=== PATIENT | female | born 1940 | race Caucasian/White ===

== ENCOUNTER → 2019-10-23 | Outpatient (CLI) | payer MEDICARE, OTHER ==
[2019-10-23 14:11] LABS: Source, Urine Clean Catch
[2019-10-23 15:10] LABS: Appearance, Urine Cloudy (Clear); Bilirubin, Urine Neg (Neg); Blood, Urine Neg (Neg); Color, Urine Yellow (P-Yellow); Glucose Qualitative, Urine Neg (Neg); Ketones, Urine Neg (Neg); Leukocyte Esterase, Urine 1+ (Neg); Nitrite, Urine Pos (Neg); Protein, Urine 1+ (Neg); Urobilinogen, Urine NORM (Normal)
[2019-10-23 15:39] LABS: Bacteria Many /hpf; Squamous Epithelial Cells Mod /hpf (Few)
== END | disposition home or self-care (01) ==
LOC: LAB SHORT 14:06 → LAB 14:06
PROVIDERS: Internal Medicine
DX: N18.3 Chronic kidney disease, stage 3 (moderate) (principal)
CPT/HCPCS: 81001; 82570; 84156

== ENCOUNTER 2020-01-16 16:22 | Day surgery (SDC) | payer MEDICARE, OTHER ==
[~2020-01-16] VITALS: Ht 170.2 cm; Wt 95.4 kg
--- NOTE | 2020-01-16 09:32 | NUR ---
History, Chart, Medications and Allergies reviewed before start of procedure. Lungs clear T/O to Auscultation. Patient confirms NPO status and agrees with scheduled surgery. Pre-Op teaching done. Pt verbalizes understanding. Patient reports completing Chlorhexadine shower X2 prior to admission to hospital.
--- NOTE | 2020-01-16 11:16 | NUR ---
01/16/20 1116 MoJuan Manuel L RIGHT LEG HAS MULTIPLE SCRATCHES ON THE ANTERIOR ANKLE AREA. SCRATCHES ALSO NOTED ON RIGHT SIDE OF PATIENTS ABDOMEN AND HIP AREA. PATIENT STATES THAT "IT'S FROM THE (CHLORAHEXADINE) SOAP I HAD TO USE IN THE SHOWER". HEALING ULCERATION ON TIP OF RIGHT 5TH TOE. ALSO PATIENT HAS LARGE BRUISE ON LEFT HIP. PATIENT STATES "I FELL LAST WEEK WHEN I TRIPPED ON MY WALKER". DR. ALEMAN AWARE OF ABOVE SKIN ALTERATIONS.
[~2020-01-16 16:22] MED LIST: AMIT50 PO; ASPI81CH PO; CELE200 PO; CITA20 PO; EUTHYROX100 MCG PO; FISH OIL 1,2001 EAC7 PO; HYDCHL25 PO; LOSA50 PO; METF500 PO; Nolvadex20 MG PO; VITAMIN B125000 MC1 PO; VITAMIN D325 MC3 PO
--- NOTE | 2020-01-16 19:23 | NUR ---
SHIFT SUMMARY PT'S SPINAL WAS LONG LASTING AND WAS ONLY ABLE TO DO A VERY LIMITED THERAPY SESSION. VSS. PAIN WELL MANAGED. EATING, DRINKING, & VOIDING. BLOOD SUGAR CHECK WAS HIGH; PT REPORTS HAVING REG SUGAR WITH A COFFEE 1 HOUR PRIOR TO CHECK. DISCUSSED IMPORTANCE OF BLOOD SUGAR CONTROL FOR DECREASED RISK OF INFECTION SO SHE WAS AGREEABLE TO RECIEVE INSULIN. HOSPITALIST CONSULT IF NEXT BS CHECK IS HIGH.
[2020-01-17 04:26] LABS: BASOPHILS ABSOLUTE AUTO 0.02 K/mm3 (0.00-0.23); BASOPHILS PERCENT AUTO 0 % (0-2); EOSINOPHILS PERCENT AUTO 0 % (0-6); Hematocrit 29.5 % (33.0-51.0); Hemoglobin 9.1 g/dL (11.5-16.0); IMMATURE GRAN ABSOLUTE AUTO 0.02 K/mm3 (0.00-0.10); IMMATURE GRAN PERCENT AUTO 0 % (0-1); LYMPHOCYTES ABSOLUTE AUTO 1.47 K/mm3 (0.84-5.20); LYMPHOCYTES PERCENT AUTO 17 % (21-46); MONOCYTES ABSOLUTE AUTO 0.88 K/mm3 (0.16-1.47); MONOCYTES PERCENT AUTO 10 % (4-13); Mean Corpuscular HGB 30.8 pg (26.0-34.0); Mean Corpuscular HGB Conc 30.8 g/dL (31.5-36.5); Mean Corpuscular Volume 100 fL (80-100); Mean Platelet Volume 9.9 fL (9.1-12.4); NEUTROPHILS PERCENT AUTO 73 % (41-73); Platelet Count 157 K/mm3 (150-400); RDW Standard Deviation 47.7 fL (35.1-46.3); Red Blood Cell Count 2.95 M/mm3 (3.80-5.20); White Blood Cell Count 8.69 K/mm3 (4.00-11.30)
[2020-01-17 04:51] LABS: Bun/Creatinine Ratio 22.7 (12.0-20.0); Calcium, Blood 8.6 mg/dL (8.5-10.1); Creatinine, Blood 1.54 mg/dL (0.40-1.00); Potassium, Blood 4.8 mmol/L (3.5-5.5)
--- NOTE | 2020-01-17 05:16 | NUR ---
SHIFT SUMMARY: PT POD#1 FOR RT TKA. ALBERTO WRAP C/D/I WITH POLAR PACK IN PLACE. EXTREMITY ELEVATED THROUGHOUT NIGHT. REPORTS NEUROPATHY TO BILATERAL FEET AT BASELINE. PULSE IS STRONG WITH CAP REFILL <3 SEC. PT AMBULATING TO BATHROOM WITH FWW/GB WITH 1 MINIMAL ASSIST. PAIN BEING MANAGED WITH OXY AND TYLENOL PER EMAR. SCARLETT PO. DENIES N/V. PLAN FOR PT TO WORK WITH PHYSICAL THERPAY TODAY X2.
[2020-01-17] MEDS ORDERED: Percocet 5-3251 EACH (12:14)
[2020-01-17] MEDS ORDERED: BACTRIM DS TAB1 EAC1 (12:17)
[2020-01-17] MEDS ORDERED: ENOX40I PO (12:20)
--- NOTE | 2020-01-17 15:14 | NUR ---
PATIENT D/C'D HOME WITH SON AT THIS TIME; STATES UNDERSTANDING OF MEDS, WOUND CARE, OP PT, LOVENOX ADMINISTRATION, ACTIVITY, ETC. NO ACUTE CHANGES OR C/O. PATIENT STATES SHE TOOK ABX PRIOR TO ADMIT, INSTRUCTED PATIENT TO CALL DR ALEMAN TO SEE IF HE WISHES TO CALL IN ADDITIONAL ABX RX.
== END 2020-01-17 15:14 | disposition home or self-care (01) ==
LOC: ORSCMMR 16:22 → SURS 01-17 15:14 → ORSCMMR 01-17 15:14
PROVIDERS: Orthopaedic Surgery
PROC: 8E0YXBZ Computer Assisted Procedure of Lower Extremity (ICD-10-PCS; principal; 2020-01-16 10:45)
PROC: 0SRC0J9 Replacement of Right Knee Joint with Synthetic Substitute, Cemented, Open Approach (ICD-10-PCS; principal; 2020-01-16 10:45)
DX: M17.11 Unilateral primary osteoarthritis, right knee (principal); E11.9 Type 2 diabetes mellitus without complications; I10 Essential (primary) hypertension; J44.9 Chronic obstructive pulmonary disease, unspecified; K21.9 Gastro-esophageal reflux disease without esophagitis; E66.9 Obesity, unspecified; Z68.33 Body mass index [BMI] 33.0-33.9, adult; Z79.899 Other long term (current) drug therapy
CPT/HCPCS: 36415; 73560-RT; 80048; 82947; 83735; 85025; 88300; 97110; 97116; 97162; 97530; A9270; A9270-GY; C1713; C1776; J0171; J0690; J0735; J1100; J1650; J1815; J1885; J2250; J2405; J2704; J2795; J3010; J3370; J7120

== ENCOUNTER 2020-06-26 09:14 | Day surgery (SDC) | payer MEDICARE, OTHER ==
[~2020-06-26] VITALS: Ht 170.2 cm; Wt 99.1 kg
[~2020-06-26 09:14] MED LIST changes: +BACTRIM DS TAB1 EAC1; +ENOX40I PO; +Percocet 5-3251 EACH
== END 2020-06-26 12:15 | disposition home or self-care (01) ==
LOC: ORSCSDS 09:14
PROVIDERS: Otolaryngology
PROC: 09JY8ZZ Inspection of Sinus, Via Natural or Artificial Opening Endoscopic (ICD-10-PCS; principal; 2020-06-26 10:30)
DX: J34.0 Abscess, furuncle and carbuncle of nose (principal); R04.0 Epistaxis; I10 Essential (primary) hypertension; N18.9 Chronic kidney disease, unspecified; J44.9 Chronic obstructive pulmonary disease, unspecified; Z87.891 Personal history of nicotine dependence; E11.9 Type 2 diabetes mellitus without complications; E03.9 Hypothyroidism, unspecified; Z79.84 Long term (current) use of oral hypoglycemic drugs; Z79.899 Other long term (current) drug therapy; E66.9 Obesity, unspecified; Z68.34 Body mass index [BMI] 34.0-34.9, adult; Z79.82 Long term (current) use of aspirin
CPT/HCPCS: 82947; 88305; 88312; J0171; J1100; J2405; J2704; J3010

== ENCOUNTER → 2020-09-04 | Outpatient (CLI) | payer MEDICARE, OTHER | END | disposition home or self-care (01) | LOC: LAB SHORT 16:26 → LAB 16:26 | DX: N39.0 Urinary tract infection, site not specified (principal) | CPT/HCPCS: 87077; 87086; 87186 ==

== ENCOUNTER → 2020-09-11 | Outpatient (CLI) | payer MEDICARE, OTHER | LOC: LAB 11:37 → LAB SHORT 11:37 | DX: N39.0 Urinary tract infection, site not specified (principal) | CPT/HCPCS: 87086; 87106 ==

== ENCOUNTER → 2021-05-28 | Outpatient (CLI) | payer MEDICARE, OTHER | END | disposition home or self-care (01) | LOC: LAB SHORT 12:18 | DX: E11.9 Type 2 diabetes mellitus without complications (principal) | CPT/HCPCS: 36415; 83036 ==

== ENCOUNTER → 2022-01-13 | Outpatient (CLI) | payer MEDICARE, OTHER ==
[2022-01-13 14:02] LABS: Albumin, Blood 3.4 g/dL (3.4-5.0); Albumin/Globulin Ratio 0.8 (0.8-1.8); Bilirubin, Total 0.7 mg/dL (0.1-1.0); Calcium, Blood 9.4 mg/dL (8.5-10.1); Creatinine, Blood 1.67 mg/dL (0.40-1.00); Globulin, Blood 4.5 g/dL (2.2-4.0); Potassium, Blood 3.8 mmol/L (3.5-5.5); Total Protein, Blood 7.9 g/dL (6.4-8.2)
== END | disposition home or self-care (01) ==
LOC: LAB SHORT 11:12
PROVIDERS: Family Medicine
DX: E11.22 Type 2 diabetes mellitus with diabetic chronic kidney disease (principal); N18.32 Chronic kidney disease, stage 3b
CPT/HCPCS: 36415; 80053; 83036

== ENCOUNTER 2022-09-07 13:02 | Day surgery (SDC) | payer MEDICARE, OTHER ==
[~2022-09-07] VITALS: Ht 170.2 cm; Wt 96.2 kg
[~2022-09-07 13:02] MED LIST changes: +AMLODIPINE BESYL5 MG PO; +BASAGLAR K100 UNIT/3 SC; +ESCI10 PO; +GABA100 PO; +TRELEGY ELLIPT1 EACH IH
[2022-09-07] MEDS ORDERED: FARXIGA10 MG PO (13:23)
[2022-09-07] MEDS ORDERED: LOSA50 PO (13:24)
[2022-09-07 16:33] VITALS: BP 124/69
== END 2022-09-07 16:24 | disposition home or self-care (01) ==
LOC: ORSCSDS 13:02
PROVIDERS: Specialist
PROC: 0DBK8ZX Excision of Ascending Colon, Via Natural or Artificial Opening Endoscopic, Diagnostic (ICD-10-PCS; principal; 2022-09-07 14:15)
PROC: 0DB78ZX Excision of Stomach, Pylorus, Via Natural or Artificial Opening Endoscopic, Diagnostic (ICD-10-PCS; principal; 2022-09-07 14:15)
PROC: 0DBN8ZX Excision of Sigmoid Colon, Via Natural or Artificial Opening Endoscopic, Diagnostic (ICD-10-PCS; principal; 2022-09-07 14:15)
PROC: 0DB98ZX Excision of Duodenum, Via Natural or Artificial Opening Endoscopic, Diagnostic (ICD-10-PCS; principal; 2022-09-07 14:15)
DX: K62.5 Hemorrhage of anus and rectum (principal); K59.09 Other constipation; R14.0 Abdominal distension (gaseous); Z86.010 Personal history of colon polyps; R10.84 Generalized abdominal pain; K21.9 Gastro-esophageal reflux disease without esophagitis; Z79.899 Other long term (current) drug therapy; E11.22 Type 2 diabetes mellitus with diabetic chronic kidney disease; I12.9 Hypertensive chronic kidney disease with stage 1 through stage 4 chronic kidney disease, or unspecified chronic kidney disease; N18.2 Chronic kidney disease, stage 2 (mild); Z79.4 Long term (current) use of insulin; K44.9 Diaphragmatic hernia without obstruction or gangrene; K29.70 Gastritis, unspecified, without bleeding; K64.8 Other hemorrhoids; K57.30 Diverticulosis of large intestine without perforation or abscess without bleeding; G47.33 Obstructive sleep apnea (adult) (pediatric); Z87.891 Personal history of nicotine dependence; Z85.53 Personal history of malignant neoplasm of renal pelvis
CPT/HCPCS: 82947; 88305; 88342; J2704; J7120